=== PATIENT | female | born 1985 | race Two or more races ===

== ENCOUNTER 2017-04-18 15:54 | Emergency (ER) | payer MEDICAID ==
[~2017-04-18] VITALS: Ht 167.6 cm; Wt 68.0 kg
[2017-04-18 16:17] VITALS: BP 122/66
[2017-04-18] MEDS ORDERED: KETOROLAC TROMETH 60MG/2ML VIAL IM ONE (17:15)
== END 2017-04-18 17:53 | disposition home or self-care (01) ==
LOC: ER 15:57
DX: N39.0 Urinary tract infection, site not specified (principal); M54.30 Sciatica, unspecified side; G89.29 Other chronic pain; M54.5 Low back pain
CPT/HCPCS: 96372; 99283; J1885

== ENCOUNTER 2018-04-05 21:26 | Emergency (ER) | payer SELFPAY ==
[~2018-04-05] VITALS: Ht 167.6 cm; Wt 63.5 kg
[2018-04-05 22:13] LABS: Urine Bacteria FEW /hpf (None Seen); Urine Blood Negative /uL (Negative); Urine Specific Gravity 1.007 (1.001-1.035); Urine WBC 1 /hpf (0 - 5)
[2018-04-05 22:34] LABS: Basophils # (auto) 0.1 uL; Eosinophils # (auto) 0.3 uL
[2018-04-05 22:35] LABS: Eosinophils % (auto) 2.4 % (0.0-7.0); Hematocrit 32.1 % (36.0-46.0); Hemoglobin 9.9 g/dL (12.2-16.2); Lymphocytes # (auto) 3.7 uL; Lymphocytes % (auto) 32.1 % (10.0-50.0); Mean Corpuscular Hemoglobin 21.5 pg (28.0-32.0); Mean Corpuscular Hgb Conc. 30.9 g/dL (32.0-36.0); Mean Corpuscular Volume 69.3 fL (80.0-100.0); Monocytes % (auto) 8.9 % (0.0-12.0); Neutrophils # (auto) 6.5 uL; Neutrophils % (auto) 55.6 % (37.0-80.0); Nucleated Red Blood Cells % 0.1 %; Platelet Count (auto) 362 10^3/uL (140-450); Red Blood Cells 4.63 10^6/uL (4.0-5.20); Red Cell Distribution Width 16.6 % (11.8-14.3); White Blood Cell 11.6 10^3/uL (4.4-10.8)
[2018-04-05 22:46] LABS: Albumin 3.8 g/dL (3.4-5.0); Anion Gap 3 (5-15); Blood Urea Nitrogen 10 mg/dL (7-18); Calcium 8.5 mg/dL (8.5-10.1); Carbon Dioxide 27 mmol/L (21-32); Chloride 109 mmol/L (98-107); Glucose 104 mg/dL (74-106); Potassium 3.9 mmol/L (3.5-5.1); Sodium 139 mmol/L (136-145)
[2018-04-05 22:49] LABS: Alanine Aminotransferase 39 U/L (13-56); Alkaline Phosphatase 90 U/L (45-117); Aspartate Aminotransferase 20 U/L (15-37); BUN/Creatinine Ratio 14.1; Bilirubin, Total 0.4 mg/dL (0.2-1.0); GFR African American > 60 mL/min; GFR Non-African American > 60 mL/min; Total Protein 8.2 g/dL (6.4-8.2)
[2018-04-06] MEDS ORDERED: ONDANSETRON HCL 4 MG/2 ML VIAL IV ONE (05:00)
[2018-04-06] MEDS ORDERED: MORPHINE SULFATE 10 MG/ML INJ 1ML SDV IV ONE (05:00)
[2018-04-06 06:06] VITALS: BP 98/66
== END 2018-04-06 07:53 | disposition home or self-care (01) ==
LOC: ER 21:43
DX: N39.0 Urinary tract infection, site not specified (principal); K59.00 Constipation, unspecified; K80.80 Other cholelithiasis without obstruction
CPT/HCPCS: 36415; 72100; 74176; 80053; 81001; 81025; 85025; 96374; 96375; 99284; J2270; J2405

== ENCOUNTER 2018-09-01 18:00 | Emergency (ER) | payer SELFPAY ==
[~2018-09-01] VITALS: Ht 167.6 cm; Wt 68.0 kg
[2018-09-01 18:22] VITALS: BP 121/70
[2018-09-01 19:30] LABS: Basophils # (auto) 0.1 uL; Eosinophils # (auto) 0.1 uL; Lymphocytes # (auto) 1.5 uL; Lymphocytes % (auto) 12.9 % (10.0-50.0); Monocytes # (auto) 0.8 uL
[2018-09-01 19:32] LABS: Basophils % (auto) 0.5 % (0.0-2.0); Eosinophils % (auto) 0.6 % (0.0-7.0); Hematocrit 32.7 % (36.0-46.0); Mean Corpuscular Hemoglobin 20.6 pg (28.0-32.0); Mean Corpuscular Hgb Conc. 30.4 g/dL (32.0-36.0); Mean Corpuscular Volume 67.5 fL (80.0-100.0); Monocytes % (auto) 6.5 % (0.0-12.0); Neutrophils # (auto) 9.4 uL; Neutrophils % (auto) 79.5 % (37.0-80.0); Nucleated Red Blood Cells % 0.1 %; Platelet Count (auto) 399 10^3/uL (140-450); Red Blood Cells 4.85 10^6/uL (4.0-5.20); Red Cell Distribution Width 17.1 % (11.8-14.3); White Blood Cell 11.8 10^3/uL (4.4-10.8)
[2018-09-01 19:47] LABS: Albumin 3.9 g/dL (3.4-5.0); Anion Gap 7 (5-15); Blood Urea Nitrogen 8 mg/dL (7-18); Calcium 8.6 mg/dL (8.5-10.1); Carbon Dioxide 23 mmol/L (21-32); Chloride 110 mmol/L (98-107); Glucose 91 mg/dL (74-106); Potassium 3.7 mmol/L (3.5-5.1); Sodium 140 mmol/L (136-145)
[2018-09-01 19:53] LABS: Alanine Aminotransferase 40 U/L (13-56); Alkaline Phosphatase 79 U/L (45-117); Aspartate Aminotransferase 26 U/L (15-37); BUN/Creatinine Ratio 9.9; Bilirubin, Total 0.6 mg/dL (0.2-1.0); GFR African American 105 mL/min; GFR Non-African American 87 mL/min; Total Protein 8.3 g/dL (6.4-8.2)
== END 2018-09-01 22:40 | disposition left against medical advice (07) ==
LOC: ER 18:04
DX: R53.1 Weakness (principal); R11.0 Nausea; Z53.21 Procedure and treatment not carried out due to patient leaving prior to being seen by health care provider
CPT/HCPCS: 36415; 80053; 80307; 81025; 84484; 85025

== ENCOUNTER 2018-09-24 08:43 | Emergency (ER) | payer SELFPAY ==
[~2018-09-24] VITALS: Ht 167.6 cm; Wt 68.0 kg
[2018-09-24 09:40] LABS: Eosinophils # (auto) 0.2 uL; Hemoglobin 10.3 g/dL (12.2-16.2); White Blood Cell 9.1 10^3/uL (4.4-10.8)
[2018-09-24 09:43] LABS: Basophils # (auto) 0.1 uL; Basophils % (auto) 0.7 % (0.0-2.0); Eosinophils % (auto) 2.4 % (0.0-7.0); Lymphocytes # (auto) 2.4 uL; Lymphocytes % (auto) 26.7 % (10.0-50.0); Mean Corpuscular Hemoglobin 20.8 pg (28.0-32.0); Mean Corpuscular Hgb Conc. 31.1 g/dL (32.0-36.0); Mean Corpuscular Volume 66.9 fL (80.0-100.0); Monocytes # (auto) 0.7 uL; Monocytes % (auto) 7.3 % (0.0-12.0); Neutrophils # (auto) 5.7 uL; Neutrophils % (auto) 62.9 % (37.0-80.0); Platelet Count (auto) 384 10^3/uL (140-450); Red Blood Cells 4.93 10^6/uL (4.0-5.20); Red Cell Distribution Width 16.9 % (11.8-14.3)
[2018-09-24] MEDS ORDERED: MECLIZINE HCL 25 MG TAB PO ONE (10:00)
[2018-09-24 10:04] LABS: Albumin 3.7 g/dL (3.4-5.0); Calcium 8.5 mg/dL (8.5-10.1); Potassium 3.5 mmol/L (3.5-5.1)
[2018-09-24 10:07] LABS: Bilirubin, Total 0.4 mg/dL (0.2-1.0)
[2018-09-24 11:11] VITALS: BP 100/56
[2018-09-24 11:59] LABS: Urine Bacteria FEW /hpf (None Seen); Urine Blood Negative /uL (Negative); Urine Mucus FEW (None Seen); Urine Specific Gravity 1.006 (1.001-1.035); Urine WBC 10 /hpf (0 - 5)
[2018-09-24] MEDS ORDERED: cefTRIAXone 1GM/50ML D5W 50 ML IV ONE (12:15)
== END 2018-09-24 12:43 | disposition home or self-care (01) ==
LOC: ER 08:43
DX: R42 Dizziness and giddiness (principal); N39.0 Urinary tract infection, site not specified
CPT/HCPCS: 36415; 80053; 81001; 81025; 82962; 85025; 93005; 94761; 96365; 99284; J0696; J8597

== ENCOUNTER 2018-09-25 16:46 | Emergency (ER) | payer SELFPAY ==
[~2018-09-25] VITALS: Ht 167.6 cm; Wt 68.0 kg
[2018-09-25 18:32] VITALS: BP 101/62
[2018-09-25] MEDS ORDERED: LORazepam 0.5 MG TAB PO ONE (19:00)
== END 2018-09-25 19:28 | disposition home or self-care (01) ==
LOC: ER 16:51
DX: F41.0 Panic disorder [episodic paroxysmal anxiety] (principal)
CPT/HCPCS: 93005